=== PATIENT | male | born 1950 | race Hispanic/Latino ===

== ENCOUNTER → 2023-02-01 | Outpatient (CLI) | payer OTHER ==
[2023-02-01 16:33] LABS: POTASSIUM 3.2 mmol/L (3.5-5.1)
== END | disposition home or self-care (01) ==
LOC: LAB 14:56
PROVIDERS: ATTEND Internal Medicine Cardiovascular Disease
DX: I10 Essential (primary) hypertension (principal)
CPT/HCPCS: 36415; 80048

== ENCOUNTER → 2023-02-05 | Outpatient (CLI) | payer OTHER ==
[~2023-02-05] MED LIST: IOHEXOL 350 MG/ML 100ML INFUS..BTL IV ONE; NITROGLYCERIN 4.1 GM SPRAY TL ONE
== END | disposition home or self-care (01) ==
LOC: RAH 07:21
PROVIDERS: ATTEND Internal Medicine Cardiovascular Disease
DX: I25.119 Atherosclerotic heart disease of native coronary artery with unspecified angina pectoris (principal); R07.9 Chest pain, unspecified
CPT/HCPCS: 75574; Q9967

== ENCOUNTER 2023-02-28 05:57 | Observation (INO) | payer OTHER ==
[2023-02-26 15:33] LABS: HEMATOCRIT 39.8 % (42-54); LYMPHOCYTES % (AUTO) 19.1 % (21.0-51.0); MEAN CORPUSCULAR HEMOGLOBIN 29.5 pg (27.0-33.0); MEAN CORPUSCULAR HGB CONC 32.7 g/dL (32.0-36.0); MEAN CORPUSCULAR VOLUME 90.5 fL (79-99); MONOCYTES % (AUTO) 11.8 % (3.0-13.0); NEUTROPHILS % (AUTO) 61.7 % (40.0-77.0); PLATELET COUNT (AUTO) 211 K/uL (130-400); RED CELL DISTRIBUTION WIDTH 12.4 % (11.0-15.5); WHITE BLOOD COUNT (AUTO) 5.2 K/uL (4.8-10.8)
[2023-02-26 15:39] LABS: APPEARANCE,URINE CLEAR (CLEAR); BILIRUBIN,URINE NEGATIVE (NEGATIVE); COLOR,URINE YELLOW (YELLOW); GLUCOSE, URINE (UA) NEGATIVE (NEGATIVE); KETONES,URINE 5 mg/dL (NEGATIVE); LEUKOCYTE ESTERASE ,URINE NEGATIVE Leu/uL (NEGATIVE); NITRATE,URINE NEGATIVE (NEGATIVE); OCCULT BLOOD,URINE NEGATIVE (NEGATIVE); PROTEIN,URINE 10 mg/dL (NEGATIVE)
[2023-02-26 15:41] LABS: CREATININE 1.1 mg/dL (0.5-1.5)
[2023-02-26 15:44] LABS: INR 0.94 (0.85-1.15); PROTHROMBIN TIME 10.3 SEC (9.6-11.6)
[2023-02-26 15:46] LABS: PARTIAL THROMBOPLASTIN TIME 28.1 SEC (26.3-35.5)
[2023-02-26 15:50] VITALS: BP 160/86
[2023-02-26 15:57] LABS: B-TYPE NATRIURETIC PEPTIDE 241 pg/mL (0-100)
[2023-02-26 16:00] LABS: MUCUS,URINE FEW LPF (None Seen); RBC,URINE 0-1 /HPF (0-1); SQUAMOUS EPITHELIAL CELL,UR RARE /HPF (0-2); WBC,URINE 0-1 /HPF (0-1)
[2023-02-28] VITALS (11 sets, daily range): BP systolic 111–181; BP diastolic 59–102
[~2023-02-28] VITALS: Ht 172.7 cm; Wt 75.3 kg
[~2023-02-28 05:57] MED LIST changes: +AEC81 PO; +BYDUREON SQ; +CLOP75TA32 PO; +ENZA40CA PO; -IOHEXOL 350 MG/ML 100ML INFUS..BTL IV ONE; +LEVE-43 PO; +METF-446 PO; +METO-391 PO; +MV-M1TAB20 PO; -NITROGLYCERIN 4.1 GM SPRAY TL ONE; +OLME-11 PO
[2023-02-28] MEDS ORDERED: 0.9%NACL 1000ML 1,000 ML IV ONE (06:16)
[2023-02-28] MEDS ORDERED: IOHEXOL-350 50ML VIAL IV ONE (07:24)
[2023-02-28] MEDS ORDERED: MIDAZOLAM HCL 1 MG/ML 2ML VIAL ONE ×3 (07:27→10:11)
[2023-02-28] MEDS ORDERED: FENTANYL CITRATE PF 50 MCG/1 ML 2ML VIAL ONE ×2 (07:27→10:11)
[2023-02-28] MEDS ORDERED: LIDOCAINE HCL 400MG/20ML VIAL ONE (07:27)
[2023-02-28] MEDS ORDERED: NITROGLYCERIN 50MG VIAL ONE (07:28)
[2023-02-28] MEDS ORDERED: IOHEXOL-350 75 ML VIAL IV ONE ×4 (07:28→09:54)
[2023-02-28] MEDS ORDERED: VERAPAMIL HCL 2.5 MG/ML VIAL ONE (07:28)
[2023-02-28] MEDS ORDERED: HEPARIN 10,000 UNIT/10ML (1,000 UNIT/ML) VIAL ONE (07:28)
[2023-02-28] MEDS ORDERED: ATROPINE 1MG SYG IVP ONE (07:44)
[2023-02-28] MEDS ORDERED: HYDRALAZINE 20MG/ML VIAL ONE (08:08)
[2023-02-28] MEDS ORDERED: CLOPIDOGREL 300MG TAB ONE (11:03)
[2023-02-28] MEDS ORDERED: ASPIRIN 325MG EC TAB PO ONE (11:03)
[2023-02-28] MEDS ORDERED: NITROGLYCERIN 50MG/D5W 250ML 1 BOT IV PRN (11:30)
[2023-02-28] MEDS ORDERED: ONDANSETRON 4MG INJ IVP PRN (11:30)
[2023-02-28] MEDS ORDERED: 0.9%NACL 1000ML 1,000 ML IV SCH (11:30)
[2023-02-28] MEDS ORDERED: ONDANSETRON 4MG INJ IVP SCH (11:30)
[2023-02-28] MEDS ORDERED: TEMAZEPAM 30 MG CAP PO PRN (11:30)
[2023-02-28] MEDS ORDERED: ACETAMINOPHEN WITH CODEINE 1 TAB TAB PO PRN ×2 (11:30)
[2023-02-28] MEDS ORDERED: MORPHINE 5 MG/ML VIAL (5MG OR GREATER DOSE) IVP SCH ×2 (11:30)
[2023-02-28] MEDS ORDERED: CLOPIDOGREL 300MG TAB PO SCH (11:30)
[2023-02-28] MEDS ORDERED: LEVETIRACETAM 250 MG TABLET PO SCH (21:00)
[2023-02-28] MEDS ORDERED: ENZALUTAMIDE 40 MG PO SCH (21:00)
[2023-02-28] MEDS ORDERED: LEVETIRACETAM 500 MG TABLET PO SCH (21:00)
[2023-02-28] MEDS ORDERED: ASPIRIN 81 MG EC TAB PO SCH (21:00)
[2023-03-01 00:07] VITALS: BP 138/63
[2023-03-01 03:48] VITALS: BP 132/81
[2023-03-01 03:54] LABS: MEAN CORPUSCULAR HEMOGLOBIN 29.3 pg (27.0-33.0); MEAN CORPUSCULAR HGB CONC 33.6 g/dL (32.0-36.0); MEAN CORPUSCULAR VOLUME 87.2 fL (79-99); RED BLOOD CELL COUNT(AUTO) 4.47 MIL/uL (4.50-6.20); RED CELL DISTRIBUTION WIDTH 12.4 % (11.0-15.5); WHITE BLOOD COUNT (AUTO) 7.2 K/uL (4.8-10.8)
[2023-03-01 04:10] LABS: CREATININE 1.4 mg/dL (0.5-1.5); POTASSIUM 3.2 mmol/L (3.5-5.1)
[2023-03-01 07:00] VITALS: BP 145/74
[2023-03-01] MEDS ORDERED: PANTOPRAZOLE 40 MG TAB DR PO SCH (07:30)
[2023-03-01] MEDS ORDERED: KCL 20 MEQ ERTAB PO ONE (08:00)
[2023-03-01] MEDS ORDERED: MV MN PO SCH (09:00)
[2023-03-01] MEDS ORDERED: OLMESARTAN PO SCH (09:00)
[2023-03-01] MEDS ORDERED: METOPROLOL SUCCINATE 50 MG TAB.SR.24H PO SCH (09:00)
[2023-03-01] MEDS ORDERED: CLOPIDOGREL 75MG TAB PO SCH ×3 (09:00)
[2023-03-01] MEDS ORDERED: [UNRECOGNIZED DRUG - OTHER] PO SCH (09:00)
[2023-03-01] MEDS ORDERED: HYDROCHLOROTHIAZIDE PO SCH (09:00)
[2023-03-01] MEDS ORDERED: ASPIRIN 81MG CHEW TAB PO SCH ×2 (09:00)
[2023-03-01] MEDS ORDERED: [UNRECOGNIZED DRUG - OTHER] PO SCH (09:00)
[2023-03-01] MEDS ORDERED: IRON PO SCH (09:00)
[2023-03-01] MEDS ORDERED: HERBAL CMPLX PO SCH (09:00)
[2023-03-01] MEDS ORDERED: LEVETIRACETAM 500 MG TABLET PO SCH (09:00)
[2023-03-01] MEDS ORDERED: ATOR40TA69 PO ×2 (09:19→09:34)
[2023-03-01] MEDS ORDERED: ATOR80TA PO (09:23)
== END 2023-03-01 11:40 | disposition home or self-care (01) ==
LOC: DAH 05:57 → DAHIP 05:58 → 2DH 13:09
PROVIDERS: ADMIT Student in an Organized Health Care Education/Training Program; ATTEND Student in an Organized Health Care Education/Training Program
DX: I25.10 Atherosclerotic heart disease of native coronary artery without angina pectoris (principal); I10 Essential (primary) hypertension; E78.5 Hyperlipidemia, unspecified; E11.9 Type 2 diabetes mellitus without complications; Z79.899 Other long term (current) drug therapy
CPT/HCPCS: 80048 ×2; 83880; 85025; 85610; 85730; 81001; 36415 ×2; 71045; 93005 ×3; 92978; 92979; 93458; 92921; 85347 ×6; 82948 ×2; 80061; 85027; C1769 ×8; C1887 ×4; C1894; C1753; C1874 ×2; C1725 ×9; G0378 ×24; J3010 ×2; J3490 ×3; J7030; J0360; J1644 ×3; J2250 ×3; Q9967 ×5; A4215; A4223 ×3; A4222; A4221; A4663; A4216; A4606; C9600 ×2; 99156; 99157; J0461

== ENCOUNTER → 2024-04-28 | Outpatient (CLI) | payer OTHER ==
[~2024-04-28] MED LIST changes: +ATOR40TA69 PO; -OLME-11 PO; +OLME-12 PO
[2024-04-28 12:10] LABS: MAGNESIUM 1.8 mg/dL (1.80-2.40); POTASSIUM 3.9 mmol/L (3.5-5.1)
== END | disposition home or self-care (01) ==
LOC: LAB 10:41
PROVIDERS: ATTEND Physician Assistant
DX: I25.10 Atherosclerotic heart disease of native coronary artery without angina pectoris (principal); R55 Syncope and collapse; E78.5 Hyperlipidemia, unspecified
CPT/HCPCS: 36415; 80048; 83735

== ENCOUNTER → 2024-06-17 | Outpatient (CLI) | payer OTHER ==
[2024-06-17] MEDS: REGADENOSON 0.4 MG/5 ML PF SYG IVP ONE (09:06)
== END | disposition home or self-care (01) ==
LOC: SHCH 07:42
PROVIDERS: ATTEND Internal Medicine Cardiovascular Disease
DX: I25.10 Atherosclerotic heart disease of native coronary artery without angina pectoris (principal); R55 Syncope and collapse
CPT/HCPCS: 78452; 96374; 93017; J2785; A9500 ×2